=== PATIENT | female | born 2000 | race Caucasian/White ===

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

== ENCOUNTER 2019-05-15 23:04 | Emergency (ER) | payer BC, OTHER ==
[~2019-05-15] VITALS: Ht 170.2 cm; Wt 67.8 kg
[2019-05-15 23:07] VITALS: BP 109/70
--- NOTE | 2019-05-15 23:17 | NUR ---
PT HERE FOR BILATERAL LEG SWELLING AND SMALL ABRASION TO RIGHT LOWER LEG. PT DENIES ANY TRUAMA. PT REPORTS RECENT TRAVEL FROM [place]. VSS
--- NOTE | 2019-05-16 00:21 | NUR ---
PT TO US
== END 2019-05-16 01:23 ==
LOC: ED 05-16 01:22
DX: S80.811A Abrasion, right lower leg, initial encounter (principal); R60.0 Localized edema; X58.XXXA Exposure to other specified factors, initial encounter; Y93.89 Activity, other specified; Y92.89 Other specified places as the place of occurrence of the external cause; Y99.8 Other external cause status
CPT/HCPCS: 71045; 93970; 99284